=== PATIENT | female | born 1975 | race Caucasian/White ===

== ENCOUNTER → 2016-06-22 | Outpatient (CLI) | payer OTHER ==
--- NOTE | 2016-06-22 15:13 | REP ---
MRI BRAIN WITHOUT CONTRAST: HISTORY: Migraine headaches. COMPARISON: 12/09/2012. There are no areas of abnormal signal intensity in the brain. There is no intraparenchymal hemorrhage, infarct, mass or midline shift. The ventricular system is normal in appearance. There is no extracerebral collection. The cerebellar tonsils extend 3 mm inferior through the foramen magnum. Mucosal thickening is present in the ethmoid sinuses. IMPRESSION: There is no intracranial lesion. Signed by Andrew Becerra MD 06/22/2016 03:15 P
== END ==
LOC: M RAD 13:29
PROVIDERS: ATTEND Psychiatry & Neurology Neurology
DX: G43.709 Chronic migraine without aura, not intractable, without status migrainosus (principal)

== ENCOUNTER → 2019-03-20 | Outpatient (CLI) | payer OTHER ==
--- NOTE | 2019-03-20 16:22 | REP ---
MRI lumbar spine without contrast: History: Spinal stenosis. Back pain. Comparison examination is from June 24, 2015. Technique: Sagittal and axial T1 and T2-weighted scans are acquired in the usual fashion with and without fat saturation. Sequences include spin echo, turbo spin-echo, and STIR imaging sequences. MRI findings: Lumbar vertebral body heights are preserved. Alignment is normal. Cortical and medullary bone signal intensity is normal. There is no evidence of spondylolysis. No extra spinal abnormality is observed. Axial and sagittal images at L5 S1 demonstrate mild facet hypertrophy bilaterally which is felt to be unchanged. No disc protrusion, central canal stenosis or foraminal encroachment is seen at L5-S1. At the L4-5, today's study demonstrates a small to moderate-sized right paracentral focal disc protrusion which produces thecal sac compression and some central canal stenosis. This is a new finding. There is ligamentum flavum and facet hypertrophy which exacerbates the central canal stenosis along with developmentally short pedicles. Thecal sac measures 5.6 mm in AP dimension in the midline at this level. No foraminal narrowing is seen. At L3-4, there is no evidence of disc protrusion or foraminal narrowing. Canal size is borderline. At L2-3 there is mild diffuse disc bulging subtly indenting the ventral margin of the thecal sac unchanged. The L1-2 level is unremarkable. Impression: There is a new right paracentral focal disc protrusion at L4-5. There is central canal stenosis at L4-5 due to this in conjunction with ligamentum flavum and facet hypertrophy. The disc protrusion is a new finding. The facet and ligamentum flavum hypertrophy are somewhat more prominent. Electronically Signed by Luke Lara MD 03/20/2019 04:30 P
== END ==
LOC: M PLARAD 09:13
PROVIDERS: ATTEND Psychiatry & Neurology Neurology
DX: M54.5 Low back pain (principal)

== ENCOUNTER → 2019-04-01 | Outpatient (CLI) | payer OTHER ==
[2019-04-01 13:10] LABS: BLOOD UREA NITROGEN 14 MG/DL (7-18); CALCIUM LEVEL 9.6 MG/DL (8.5-10.1); CARBON DIOXIDE LEVEL 30 MEQ/L (21-32); CHLORIDE LEVEL 100 MEQ/L (98-107); GLOMERULAR FILTRATION RATE > 60.0 (>58); GLUCOSE, FASTING 128 MG/DL (70-100); POTASSIUM SERUM 3.9 MEQ/L (3.5-5.1); SODIUM LEVEL 137 MEQ/L (136-145)
== END ==
LOC: M LAB 11:44
PROVIDERS: ATTEND Orthopaedic Surgery Hand Surgery
DX: G56.02 Carpal tunnel syndrome, left upper limb (principal); G56.22 Lesion of ulnar nerve, left upper limb; Z79.899 Other long term (current) drug therapy

== ENCOUNTER → 2019-05-19 | Outpatient (REF) | payer OTHER ==
[2019-05-19 16:10] LABS: FREE T4 0.89 NG/DL (0.76-1.46); RHEUMATOID FACTOR QUANT < 10.0 IU/ML (<15.0)
[2019-05-19 18:07] LABS: FOLATE 7.9 NG/ML; VITAMIN B12 LEVEL 608 PG/ML
== END ==
LOC: M LABNEURO 13:41
PROVIDERS: ATTEND Psychiatry & Neurology Neurology
DX: E06.9 Thyroiditis, unspecified (principal); R20.2 Paresthesia of skin

== ENCOUNTER → 2019-11-16 | Outpatient (CLI) | payer OTHER ==
[2019-11-18 19:07] LABS: ANA (HEP2) Negative (.); ANTI JO-1 ANTIBODIES <0.2 AI (0.0-0.9)
== END ==
LOC: M LAB 15:38
PROVIDERS: ATTEND Dermatology
DX: R21 Rash and other nonspecific skin eruption (principal)

== ENCOUNTER → 2020-07-01 | Outpatient (CLI) | payer OTHER ==
--- NOTE | 2020-07-01 14:17 | REPVR ---
PROCEDURE INFORMATION: Exam: MR Head Without Contrast Exam date and time: 07/01/2020 11:27 AM Age: 44 years old Clinical indication: Pain; Headache; Migraine; Without aura; Does not respond to medication; Severity not specified; Patient HX: H/a TECHNIQUE: Imaging protocol: MR of the head without contrast. COMPARISON: MRI-Brain without Contrast 06/22/2016 1:53 PM FINDINGS: Brain: No acute infarct identified on the diffusion-weighted imaging. No parenchymal hemorrhage. Slight cerebellar tonsillar ectopia, likely incidental. No evidence of brain parenchymal edema or intracranial mass effect. A tiny T2 hyperintense focus in the right samaritan parenchyma on image 11 of series 601, potentially artifact, it would be helpful to evaluate this on axial FLAIR sequence; no correlative finding identified on the T1 weighted imaging, no blooming evident on the gradient echo imaging. Cerebral ventricles: Stable. No ventriculomegaly. Bones/joints: Unremarkable. Paranasal sinuses: Prior endoscopic sinus surgery. Retention cyst or polyp in the right maxillary sinus. Mastoid air cells: Normal as visualized. No mastoid effusion. Orbital cavity: Unremarkable. Soft tissues: Unremarkable. IMPRESSION: 1. The patient declined to complete imaging. An axial FLAIR sequence was not obtained. 2. To the extent that can be evaluated, stable, essentially unremarkable MRI brain. Electronically signed by: Kathie Rivas On 07/01/2020 14:17:23 PM
== END ==
LOC: M PLARAD 10:09
PROVIDERS: ATTEND Psychiatry & Neurology Neurology
DX: G43.719 Chronic migraine without aura, intractable, without status migrainosus (principal); R20.2 Paresthesia of skin; R42 Dizziness and giddiness

== ENCOUNTER → 2021-02-14 | Outpatient (REF) | payer OTHER ==
[2021-02-14 18:06] LABS: APPEARANCE, URINE HAZY (CLEAR); BACTERIA, URINE AUTO NEGATIVE (NEGATIVE); BILIRUBIN, URINE AUTO NEGATIVE (NEGATIVE); BLOOD, URINE BLOOD NEGATIVE (NEGATIVE); COLOR, URINE YELLOW (YELLOW); GLUCOSE, URINE (UA) AUTO NEGATIVE (NEGATIVE); KETONE, URINE AUTO TRACE mg/dL (NEGATIVE); LEUKOCYTE ESTERASE, URINE AUTO NEGATIVE (NEGATIVE); MUCUS, URINE SMALL (NEGATIVE); NITRITE, URINE AUTO NEGATIVE (NEGATIVE); PROTEIN, URINE AUTO NEGATIVE (NEGATIVE); RBC, URINE AUTO 1 /HPF (0-3); SPECIFIC GRAVITY URINE AUTO 1.029 (1.002-1.035); SQUAMOUS EPITHELIAL CELL UR AU 3 /HPF (0-6); UROBILINOGEN, URINE AUTO 0.2 mg/dL (0.0-2.0); WBC, URINE AUTO 1 /HPF (0-3)
== END ==
LOC: M SMT 16:52
PROVIDERS: ATTEND Nurse Practitioner Women's Health
DX: R32 Unspecified urinary incontinence (principal)

== ENCOUNTER → 2021-11-09 | Outpatient (REF) | payer OTHER | LOC: M SFHCDERM 13:54 | PROVIDERS: ATTEND Nurse Practitioner Family | DX: L82.1 Other seborrheic keratosis (principal); D48.5 Neoplasm of uncertain behavior of skin ==